=== PATIENT | female | born 1945 | race Caucasian/White ===

== ENCOUNTER 2018-05-05 18:30 | Inpatient (IN) | payer MEDICARE ==
[~2018-05-05] VITALS: Ht 154.9 cm; Wt 63.5 kg
[2018-05-05 20:00] VITALS: BP 104/53
[2018-05-05] MEDS ORDERED: MORPHINE SULFATE 4 MG/ML CPJ (NOT FOR IM USE) IV PRN (20:15)
[2018-05-05] MEDS ORDERED: PROCHLORPERAZINE 10MG/2ML VIAL IV PRN (20:15)
[2018-05-05] MEDS ORDERED: SODIUM CHLORIDE 0.9% 1,000 ML IV SCH (20:15)
[2018-05-05] MEDS ORDERED: ONDANSETRON HCL 4MG TABLET PO PRN (20:30)
[2018-05-05] MEDS ORDERED: HYDROCODONE/ACETAMINOPHEN 5/325MG TABLET PO PRN (20:30)
[2018-05-05] MEDS: POLYETHYLENE GLYCOL 3350 (17GM) 1 DOSE PACK PO SCH (21:00)
[2018-05-05] MEDS ORDERED: MECLIZINE 25MG TABLET PO PRN (21:15)
[2018-05-06] MEDS ORDERED: CEFAZOLIN 1000MG PREMIX 50 ML IV SCH
[2018-05-06] MEDS: ACETAMINOPHEN 325MG TABLET PO PRN (06:09)
[2018-05-06 07:51] VITALS: BP 114/67
[2018-05-06] MEDS: DOCUSATE SODIUM 100MG CAPSULE PO SCH ×2 (08:52→21:00)
[2018-05-06] MEDS: ACYCLOVIR 200MG CAPSULE PO SCH ×3 (08:56→18:19)
[2018-05-06] MEDS: OXYCODONE HCL/ACETAMINOPHEN 5/325MG TABLET PO PRN ×2 (08:57→13:27)
[2018-05-06] MEDS: MIDODRINE HCL 5MG TABLET PO SCH ×2 (08:58→17:00)
[2018-05-06] MEDS: ENOXAPARIN 40MG/0.4ML SYR SUBCUT SCH (08:58)
[2018-05-06] MEDS: CALCIUM CARBONATE 500MG TABLET CHEW PO PRN (16:00)
[2018-05-06 20:00] VITALS: BP 130/84
[2018-05-06] MEDS: POLYETHYLENE GLYCOL 3350 (17GM) 1 DOSE PACK PO SCH (21:08)
[2018-05-06 23:24] LABS: BASOPHILS % 0.8 % (0.0-2.0); EOSINOPHILS % 2.3 % (0.0-5.0); HEMATOCRIT. 30.1 % (36.0-48.0); HEMOGLOBIN. 10.4 g/dL (12.0-16.0); MEAN CORPUSCULAR HEMOGLOBIN 32.5 pg (28.0-32.0); MEAN CORPUSCULAR VOLUME 94.4 fL (81.0-99.0); MEAN PLATELET VOLUME 7.9 fl (7.4-10.4); MONOCYTES % 5.9 % (2.0-8.0); PLATELET 206 x1000/uL (130-400); RED BLOOD CELL COUNT 3.19 mill/uL (4.2-5.4); RED CELL DISTRIBUTION WIDTH 12.7 % (11.6-14.6)
[2018-05-06 23:30] LABS: CHLORIDE 106 mEq/L (98-107)
[2018-05-07 08:24] VITALS: BP 119/65
[2018-05-07] MEDS: DOCUSATE SODIUM 100MG CAPSULE PO SCH ×2 (08:28→20:17)
[2018-05-07] MEDS: ENOXAPARIN 40MG/0.4ML SYR SUBCUT SCH (08:28)
[2018-05-07] MEDS: OXYCODONE HCL/ACETAMINOPHEN 5/325MG TABLET PO PRN (08:28)
[2018-05-07] MEDS: MIDODRINE HCL 5MG TABLET PO SCH ×2 (08:28→17:00)
[2018-05-07] MEDS: ACYCLOVIR 200MG CAPSULE PO SCH ×2 (08:29→17:00)
[2018-05-07] MEDS ORDERED: OXYCODONE HCL/ACETAMINOPHEN 5/325MG TABLET PO PRN (14:00)
[2018-05-07] MEDS ORDERED: POTASSIUM CHLORIDE 20MEQ TABLET SR PO NR (14:30)
[2018-05-07 18:54] LABS: BASOPHILS % 0.9 % (0.0-2.0); EOSINOPHILS % 2.7 % (0.0-5.0); HEMATOCRIT. 29.8 % (36.0-48.0); HEMOGLOBIN. 10.1 g/dL (12.0-16.0); LYMPHOCYTES % 26.1 % (20.0-50.0); MEAN CORPUSCULAR HEMOGLOBIN 32.3 pg (28.0-32.0); MEAN CORPUSCULAR VOLUME 95.1 fL (81.0-99.0); MEAN PLATELET VOLUME 8.4 fl (7.4-10.4); MONOCYTES % 7.3 % (2.0-8.0); PLATELET 222 x1000/uL (130-400); RED BLOOD CELL COUNT 3.14 mill/uL (4.2-5.4); RED CELL DISTRIBUTION WIDTH 12.6 % (11.6-14.6)
[2018-05-07 18:59] LABS: CHLORIDE 106 mEq/L (98-107)
[2018-05-07 20:00] VITALS: BP 121/69
[2018-05-07] MEDS: POLYETHYLENE GLYCOL 3350 (17GM) 1 DOSE PACK PO SCH (20:17)
[2018-05-07] MEDS: ACETAMINOPHEN 325MG TABLET PO PRN (21:22)
[2018-05-08 08:00] VITALS: BP 125/79
[2018-05-08] MEDS: ENOXAPARIN 40MG/0.4ML SYR SUBCUT SCH (08:12)
[2018-05-08] MEDS: OXYCODONE HCL/ACETAMINOPHEN 5/325MG TABLET PO PRN ×2 (08:13→12:52)
[2018-05-08] MEDS: DOCUSATE SODIUM 100MG CAPSULE PO SCH ×2 (08:13→20:40)
[2018-05-08] MEDS ORDERED: NA PHOS,M-B/NA PHOS,DI-BA ENEMA 118ML PR PRN (08:45)
[2018-05-08] MEDS ORDERED: BISACODYL 10MG SUPP PR PRN (08:45)
[2018-05-08] MEDS: MIDODRINE HCL 5MG TABLET PO SCH ×2 (09:00→17:00)
[2018-05-08] MEDS: ACYCLOVIR 200MG CAPSULE PO SCH ×2 (09:00→17:00)
[2018-05-08] MEDS: CALCIUM CARBONATE 500MG TABLET CHEW PO PRN (11:11)
[2018-05-08] MEDS: PHENYLEPHRINE/SHK LV/MO/PET,WH RECTAL OINT 57GM PR PRN (17:32)
[2018-05-08] MEDS ORDERED: PHENYLEPHRINE/SHK LV/MO/PET,WH RECTAL OINT 57GM PR SCH (18:00)
[2018-05-08 20:00] VITALS: BP 122/73
[2018-05-08] MEDS: POLYETHYLENE GLYCOL 3350 (17GM) 1 DOSE PACK PO SCH (20:41)
[2018-05-08] MEDS ORDERED: CALCIUM CARBONATE 500MG TABLET CHEW PO PRN (22:00)
[2018-05-08] MEDS ORDERED: NON FORMULARY PATIENT HOME MED EA PO PRN (22:00)
[2018-05-08] MEDS ORDERED: TUMS EXTRA STRENGTH PO PRN (22:15)
[2018-05-09 08:00] VITALS: BP 120/59
[2018-05-09] MEDS: DOCUSATE SODIUM 100MG CAPSULE PO SCH ×2 (08:45→21:21)
[2018-05-09] MEDS: ENOXAPARIN 40MG/0.4ML SYR SUBCUT SCH (08:45)
[2018-05-09] MEDS: MIDODRINE HCL 5MG TABLET PO SCH ×2 (09:00→17:00)
[2018-05-09] MEDS: ACYCLOVIR 200MG CAPSULE PO SCH ×2 (09:00→17:00)
[2018-05-09] MEDS: TUMS EXTRA STRENGTH PO PRN (14:58)
[2018-05-09] MEDS: ACETAMINOPHEN 325MG TABLET PO PRN (15:46)
[2018-05-09 20:00] VITALS: BP 101/60
[2018-05-09] MEDS: POLYETHYLENE GLYCOL 3350 (17GM) 1 DOSE PACK PO SCH (21:21)
[2018-05-10] MEDS: ACETAMINOPHEN 325MG TABLET PO PRN ×2 (04:38→22:31)
[2018-05-10 08:00] VITALS: BP 113/64
[2018-05-10] MEDS: ENOXAPARIN 40MG/0.4ML SYR SUBCUT SCH (08:10)
[2018-05-10] MEDS: MIDODRINE HCL 5MG TABLET PO SCH ×2 (08:11→17:00)
[2018-05-10] MEDS: ACYCLOVIR 200MG CAPSULE PO SCH ×2 (08:12→17:00)
[2018-05-10] MEDS: DOCUSATE SODIUM 100MG CAPSULE PO SCH ×2 (08:12→21:01)
[2018-05-10] MEDS: TUMS EXTRA STRENGTH PO PRN (11:35)
[2018-05-10] MEDS ORDERED: NON FORMULARY PATIENT HOME MED EA XX PRN (13:00)
[2018-05-10] MEDS: TRAMADOL 50MG TABLET PO PRN (14:04)
[2018-05-10 20:00] VITALS: BP 106/55
[2018-05-10] MEDS ORDERED: [UNRECOGNIZED DRUG - OTHER] PO PRN (21:00)
[2018-05-10] MEDS ORDERED: ACETAMINOPHEN PO PRN (21:00)
[2018-05-10] MEDS: POLYETHYLENE GLYCOL 3350 (17GM) 1 DOSE PACK PO SCH (21:01)
[2018-05-11 08:00] VITALS: BP 108/64
[2018-05-11] MEDS: TRAMADOL 50MG TABLET PO PRN (08:44)
[2018-05-11] MEDS: DOCUSATE SODIUM 100MG CAPSULE PO SCH ×2 (08:45→22:03)
[2018-05-11] MEDS: TUMS EXTRA STRENGTH PO PRN ×2 (08:45→14:25)
[2018-05-11] MEDS: ENOXAPARIN 40MG/0.4ML SYR SUBCUT SCH (08:45)
[2018-05-11] MEDS: ACYCLOVIR 200MG CAPSULE PO SCH ×2 (08:46→17:00)
[2018-05-11] MEDS: MIDODRINE HCL 5MG TABLET PO SCH ×2 (08:46→17:00)
[2018-05-11] MEDS: ACETAMINOPHEN 325MG TABLET PO PRN (13:16)
[2018-05-11 20:00] VITALS: BP 100/61
[2018-05-11] MEDS: POLYETHYLENE GLYCOL 3350 (17GM) 1 DOSE PACK PO SCH (22:03)
[2018-05-11] MEDS: PHENYLEPHRINE/SHK LV/MO/PET,WH RECTAL OINT 57GM PR PRN (22:05)
[2018-05-12] MEDS: ACETAMINOPHEN 325MG TABLET PO PRN ×2 (02:26→21:15)
[2018-05-12 08:00] VITALS: BP 113/64
[2018-05-12] MEDS: ACYCLOVIR 200MG CAPSULE PO SCH ×3 (08:23→17:00)
[2018-05-12] MEDS: TRAMADOL 50MG TABLET PO PRN ×2 (08:23→13:27)
[2018-05-12] MEDS: ENOXAPARIN 40MG/0.4ML SYR SUBCUT SCH (08:24)
[2018-05-12] MEDS: TUMS EXTRA STRENGTH PO PRN (08:24)
[2018-05-12] MEDS: DOCUSATE SODIUM 100MG CAPSULE PO SCH ×2 (08:24→21:15)
[2018-05-12] MEDS: MIDODRINE HCL 5MG TABLET PO SCH ×3 (08:24→17:00)
[2018-05-12 20:00] VITALS: BP 95/48
[2018-05-12] MEDS: POLYETHYLENE GLYCOL 3350 (17GM) 1 DOSE PACK PO SCH (21:15)
[2018-05-13 08:00] VITALS: BP 109/64
[2018-05-13] MEDS: DOCUSATE SODIUM 100MG CAPSULE PO SCH ×2 (08:06→21:47)
[2018-05-13] MEDS: TUMS EXTRA STRENGTH PO PRN ×2 (08:06→14:21)
[2018-05-13] MEDS: ENOXAPARIN 40MG/0.4ML SYR SUBCUT SCH (08:07)
[2018-05-13] MEDS: TRAMADOL 50MG TABLET PO PRN ×2 (08:08→13:33)
[2018-05-13] MEDS: MIDODRINE HCL 5MG TABLET PO SCH ×2 (08:08→17:00)
[2018-05-13] MEDS: ACYCLOVIR 200MG CAPSULE PO SCH ×2 (08:09→17:00)
[2018-05-13 11:35] VITALS: BP 114/71
[2018-05-13] MEDS: ASPIRIN 325MG EC TABLET PO SCH (15:33)
[2018-05-13 20:00] VITALS: BP 124/79
[2018-05-13] MEDS: POLYETHYLENE GLYCOL 3350 (17GM) 1 DOSE PACK PO SCH (21:47)
[2018-05-14 07:45] VITALS: BP 105/66
[2018-05-14] MEDS: ASPIRIN 325MG EC TABLET PO SCH ×2 (08:23→18:02)
[2018-05-14] MEDS: TRAMADOL 50MG TABLET PO PRN ×2 (08:23→13:13)
[2018-05-14] MEDS: DOCUSATE SODIUM 100MG CAPSULE PO SCH ×2 (08:24→21:09)
[2018-05-14] MEDS: MIDODRINE HCL 5MG TABLET PO SCH ×2 (08:25→17:00)
[2018-05-14] MEDS: ACYCLOVIR 200MG CAPSULE PO SCH ×2 (08:25→17:00)
[2018-05-14] MEDS: TUMS EXTRA STRENGTH PO PRN ×2 (08:27→19:07)
[2018-05-14] MEDS: NEOMYCIN-POLYMYXIN-HYDROCORTISONE 1% OTIC SUSP 10ML LEFT EAR SCH (18:02)
[2018-05-14 18:09] VITALS: BP 104/68
[2018-05-14 20:00] VITALS: BP 106/68
[2018-05-14] MEDS: POLYETHYLENE GLYCOL 3350 (17GM) 1 DOSE PACK PO SCH (21:09)
[2018-05-14] MEDS: FLUTICASONE PROPIONATE 50MCG/SPRAY BOTTLE BOTHNSTRLS SCH (21:10)
[2018-05-15 08:00] VITALS: BP 105/71
[2018-05-15] MEDS: TUMS EXTRA STRENGTH PO PRN ×2 (08:22→15:39)
[2018-05-15] MEDS: TRAMADOL 50MG TABLET PO PRN ×2 (08:22→12:50)
[2018-05-15] MEDS: ASPIRIN 325MG EC TABLET PO SCH ×2 (08:22→17:34)
[2018-05-15] MEDS: FLUTICASONE PROPIONATE 50MCG/SPRAY BOTTLE BOTHNSTRLS SCH ×2 (08:23→21:01)
[2018-05-15] MEDS: DOCUSATE SODIUM 100MG CAPSULE PO SCH ×2 (08:24→21:00)
[2018-05-15] MEDS: NEOMYCIN-POLYMYXIN-HYDROCORTISONE 1% OTIC SUSP 10ML LEFT EAR SCH ×3 (08:24→21:01)
[2018-05-15] MEDS: MIDODRINE HCL 5MG TABLET PO SCH ×2 (08:24→17:00)
[2018-05-15] MEDS: ACYCLOVIR 200MG CAPSULE PO SCH ×2 (08:25→17:00)
[2018-05-15] MEDS: ACETAMINOPHEN 325MG TABLET PO PRN (11:11)
[2018-05-15 20:00] VITALS: BP 92/62
[2018-05-15] MEDS: POLYETHYLENE GLYCOL 3350 (17GM) 1 DOSE PACK PO SCH (21:00)
[2018-05-16 08:00] VITALS: BP 106/62
[2018-05-16] MEDS: ASPIRIN 325MG EC TABLET PO SCH ×2 (08:29→18:03)
[2018-05-16] MEDS: TRAMADOL 50MG TABLET PO PRN ×2 (08:29→12:45)
[2018-05-16] MEDS: DOCUSATE SODIUM 100MG CAPSULE PO SCH ×2 (08:29→20:57)
[2018-05-16] MEDS: TUMS EXTRA STRENGTH PO PRN ×2 (08:29→19:46)
[2018-05-16] MEDS: FLUTICASONE PROPIONATE 50MCG/SPRAY BOTTLE BOTHNSTRLS SCH ×2 (08:30→20:57)
[2018-05-16] MEDS: ACYCLOVIR 200MG CAPSULE PO SCH ×2 (08:32→16:25)
[2018-05-16] MEDS: NEOMYCIN-POLYMYXIN-HYDROCORTISONE 1% OTIC SUSP 10ML LEFT EAR SCH ×2 (08:32→18:03)
[2018-05-16] MEDS: MIDODRINE HCL 5MG TABLET PO SCH ×2 (08:32→16:25)
[2018-05-16 10:17] LABS: BASOPHILS % 0.7 % (0.0-2.0); EOSINOPHILS % 1.1 % (0.0-5.0); HEMOGLOBIN. 11.9 g/dL (12.0-16.0); LYMPHOCYTES % 18.5 % (20.0-50.0); MEAN CORPUSCULAR HEMOGLOBIN 32.3 pg (28.0-32.0); MEAN CORPUSCULAR VOLUME 95.3 fL (81.0-99.0); MEAN PLATELET VOLUME 8.2 fl (7.4-10.4); MONOCYTES % 4.3 % (2.0-8.0); NEUTROPHILS % 75.4 % (40.0-76.0); PLATELET 459 x1000/uL (130-400); RED BLOOD CELL COUNT 3.68 mill/uL (4.2-5.4); RED CELL DISTRIBUTION WIDTH 12.7 % (11.6-14.6)
[2018-05-16 11:10] LABS: CHLORIDE 102 mEq/L (98-107)
[2018-05-16 20:00] VITALS: BP 87/58
[2018-05-16] MEDS: POLYETHYLENE GLYCOL 3350 (17GM) 1 DOSE PACK PO SCH (20:57)
[2018-05-17 08:00] VITALS: BP 104/61
[2018-05-17] MEDS: TRAMADOL 50MG TABLET PO PRN ×2 (08:00→12:46)
[2018-05-17] MEDS: TUMS EXTRA STRENGTH PO PRN ×2 (08:00→18:34)
[2018-05-17] MEDS: ASPIRIN 325MG EC TABLET PO SCH ×2 (08:00→17:00)
[2018-05-17] MEDS: DOCUSATE SODIUM 100MG CAPSULE PO SCH ×2 (08:00→21:22)
[2018-05-17] MEDS: MIDODRINE HCL 5MG TABLET PO SCH ×2 (08:01→17:00)
[2018-05-17] MEDS: FLUTICASONE PROPIONATE 50MCG/SPRAY BOTTLE BOTHNSTRLS SCH (08:01)
[2018-05-17] MEDS: NEOMYCIN-POLYMYXIN-HYDROCORTISONE 1% OTIC SUSP 10ML LEFT EAR SCH ×2 (08:01→17:01)
[2018-05-17] MEDS: ACYCLOVIR 200MG CAPSULE PO SCH ×2 (08:02→17:00)
[2018-05-17 20:00] VITALS: BP 97/56
[2018-05-17] MEDS: POLYETHYLENE GLYCOL 3350 (17GM) 1 DOSE PACK PO SCH (21:21)
[2018-05-17] MEDS: ACETAMINOPHEN 325MG TABLET PO PRN (21:26)
[2018-05-18 05:00] VITALS: BP 108/62
[2018-05-18 08:00] VITALS: BP 101/70
[2018-05-18] MEDS: ASPIRIN 325MG EC TABLET PO SCH (08:02)
[2018-05-18] MEDS: DOCUSATE SODIUM 100MG CAPSULE PO SCH (08:02)
[2018-05-18] MEDS: TUMS EXTRA STRENGTH PO PRN (08:02)
[2018-05-18] MEDS: NEOMYCIN-POLYMYXIN-HYDROCORTISONE 1% OTIC SUSP 10ML LEFT EAR SCH (08:03)
[2018-05-18] MEDS: TRAMADOL 50MG TABLET PO PRN ×2 (08:04→12:38)
[2018-05-18] MEDS: ACYCLOVIR 200MG CAPSULE PO SCH (09:00)
[2018-05-18] MEDS: MIDODRINE HCL 5MG TABLET PO SCH (09:00)
[2018-05-18 10:03] VITALS: BP 101/70
[2018-05-18 12:38] VITALS: BP 111/66
== END 2018-05-18 13:52 | disposition home health service (06) | DRG 536 ==
PROVIDERS: ADMIT Psychiatry & Neurology Neurology; ATTEND Hospitalist
DX: S72.002A Fracture of unspecified part of neck of left femur, initial encounter for closed fracture (principal); I10 Essential (primary) hypertension; M81.0 Age-related osteoporosis without current pathological fracture; F11.10 Opioid abuse, uncomplicated; R26.9 Unspecified abnormalities of gait and mobility; D64.9 Anemia, unspecified; F06.31 Mood disorder due to known physiological condition with depressive features; Z96.642 Presence of left artificial hip joint; K59.00 Constipation, unspecified; I95.89 Other hypotension; F41.9 Anxiety disorder, unspecified; W18.39XA Other fall on same level, initial encounter
CPT/HCPCS: 36415; 80048; 80053; 83735; 85025; 93970; 97110; 97116; 97162; 97167; 97530; 97535; J0690; J1650; J7030